=== PATIENT | female | born 1985 | race Caucasian/White ===

== ENCOUNTER 2018-01-27 23:56 | Emergency (ER) | payer SELFPAY ==
[~2018-01-27] VITALS: Ht 149.9 cm; Wt 54.5 kg
[2018-01-28 01:03] LABS: HEMATOCRIT 29.9 % (36.0-46.0); HEMOGLOBIN 10.1 G/DL (11.9-15.5); MCHC 33.8 G/DL (30.0-36.0); MCV 91.7 FL (83-99); PLATELET COUNT 243 K/uL (156-360); RBC DIS.WIDTH-CV 12.5 % (11.8-14.6); RBC DIS.WIDTH-SD 42.1 % (39-53); RED BLOOD COUNT 3.26 M/uL (3.80-5.20); WHITE BLOOD COUNT 7.7 K/uL (4.1-10.2)
[2018-01-28 01:14] LABS: CHLORIDE 118 mEq/L (99-109); POTASSIUM 2.5 mEq/L (3.7-5.4); SODIUM 144 mEq/L (136-147)
[2018-01-28 01:16] LABS: GLUCOSE 108 mg/dL (70-99)
[2018-01-28 01:17] LABS: TOTAL PROTEIN 4.5 g/dL (6.4-8.3)
[2018-01-28 01:18] LABS: TOTAL BILIRUBIN 0.1 mg/dL (0.0-1.0)
[2018-01-28 01:19] LABS: SERUM ETHYL ALCOHOL 236 mg/dL
[2018-01-28 01:20] LABS: ALKALINE PHOSPHATASE 39 IU/L (3-129); CREATININE 0.5 mg/dL (0.6-1.3)
[2018-01-28 01:21] LABS: UREA NITROGEN (BUN) 4 mg/dL (9-23)
[2018-01-28 01:22] LABS: AST (GOT) 28 IU/L (2-34)
[2018-01-28 01:23] LABS: ALT (GPT) 29 IU/L (3-49); GFR ESTIMATE (CALCULATED) > 59 mL/min/
[2018-01-28 01:24] LABS: LIPASE 14 U/L (1.0-51.0)
[2018-01-28 06:06] LABS: APPEARANCE CLEAR ((CLEAR)); BILIRUBIN NEGATIVE; BLOOD NEGATIVE; COLOR STRAW ((YELLOW)); GLUCOSE (STRIP) NEGATIVE; KETONES NEGATIVE; LEUKOCYTES NEGATIVE; NITRITE NEGATIVE; PROTEIN (STRIP) NEGATIVE; SPECIFIC GRAVITY 1.006 (1.000-1.030); UCUL ADDED? NO; UROBILINOGEN 0.2 MG/DL (0.2-1.0)
[2018-01-28 06:17] LABS: AMPHETAMINE NEGATIVE (500 ng/mL); BARBITURATES NEGATIVE (200 ng/mL); BENZODIAZEPINES NEGATIVE (150 ng/mL); BUPRENORPHINE NEGATIVE (10 ng/mL); COCAINE NEGATIVE (150 ng/mL); METHADONE NEGATIVE (200 ng/mL); METHAMPHETAMINE NEGATIVE (500 ng/mL); OPIATES (MORPHINE) NEGATIVE (100 ng/mL); OXYCODONE NEGATIVE (100 ng/mL); PHENCYCLIDINE NEGATIVE (25 ng/mL); PROPOXYPHENE NEGATIVE (300 ng/mL); THC CANNABINOIDS NEGATIVE (50 ng/mL); TRICYCLIC ANTIDEPRESSANTS NEGATIVE (300 ng/mL)
[2018-01-28 08:30] VITALS: BP 99/70
== END 2018-01-28 08:46 | disposition home or self-care (01) ==
LOC: EME 23:56
PROVIDERS: Emergency Medicine
DX: F32.9 Major depressive disorder, single episode, unspecified (principal); F10.229 Alcohol dependence with intoxication, unspecified; Y90.7 Blood alcohol level of 200-239 mg/100 ml; F43.23 Adjustment disorder with mixed anxiety and depressed mood; E87.6 Hypokalemia; R11.2 Nausea with vomiting, unspecified
CPT/HCPCS: 80053; 81003; 83690; 85027; 90839; 93005; 99281; 99284; G0480; J2405; J3480; J7030